=== PATIENT | female | born 1990 | race African-American/Black ===

== ENCOUNTER 2019-07-23 01:32 | Emergency (ER) | payer OTHER ==
[~2019-07-23] VITALS: Ht 160 cm; Wt 58.0 kg
[2019-07-23 01:54] VITALS: BP 142/90
== END 2019-07-23 04:33 | disposition left against medical advice (07) ==
LOC: ER 01:32
DX: Z53.21 Procedure and treatment not carried out due to patient leaving prior to being seen by health care provider (principal)

== ENCOUNTER 2022-12-09 04:16 | Emergency (ER) | payer OTHER ==
[~2022-12-09] VITALS: Ht 165.1 cm; Wt 75.0 kg
[2022-12-09 04:25] VITALS: BP 123/84
[2022-12-09 05:38] LABS: BASOPHILS % 0.4 % (0.0-2.0); HEMATOCRIT. 38.7 % (36.0-48.0); HEMOGLOBIN. 12.6 g/dL (12.0-16.0); LYMPHOCYTES % 26.7 % (20.0-50.0); MEAN CORPUSCULAR VOLUME 85.8 fL (81.0-99.0); MEAN PLATELET VOLUME 8.3 fl (7.4-10.4); MONOCYTES % 6.1 % (2.0-8.0); NEUTROPHILS % 65.8 % (40.0-76.0); PLATELET 331 x1000/uL (130-400); RED BLOOD CELL COUNT 4.51 mill/uL (4.2-5.4); RED CELL DISTRIBUTION WIDTH 14.8 % (11.6-14.6)
[2022-12-09 05:44] LABS: CHLORIDE 116 mEq/L (98-107)
[2022-12-09 05:52] LABS: ETHANOL BLOOD 202 mg/dL
[2022-12-09 06:05] LABS: HCG SCREEN NEGATIVE
[2022-12-09 06:55] LABS: CLARITY URINE CLOUDY (CLEAR); COLOR URINE YELLOW (YELLOW); KETONES URINE NEGATIVE (NEGATIVE); LEUKOCYTE ESTERASE URINE 1+ (NEGATIVE); NITRITE URINE NEGATIVE (NEGATIVE); OCCULT BLOOD URINE NEGATIVE (NEGATIVE); PH URINE 5.5 (4.5-8.0); PROTEIN URINE 1+ (NEGATIVE)
== END 2022-12-09 07:45 | disposition home or self-care (01) ==
LOC: ER 04:16
DX: S02.2XXA Fracture of nasal bones, initial encounter for closed fracture (principal); Y08.89XA Assault by other specified means, initial encounter; Y93.89 Activity, other specified; Y92.89 Other specified places as the place of occurrence of the external cause; Y99.8 Other external cause status; J45.909 Unspecified asthma, uncomplicated
CPT/HCPCS: 36415; 70486; 80053; 80320; 81003; 81025; 84703; 85025; 99284; G0480

== ENCOUNTER 2022-12-09 07:54 | Emergency (ER) | payer OTHER ==
[~2022-12-09] VITALS: Ht 152.4 cm; Wt 63.0 kg
[2022-12-09 08:03] VITALS: BP 122/78
== END 2022-12-09 08:58 | disposition left against medical advice (07) ==
LOC: ER 08:06
DX: Z53.21 Procedure and treatment not carried out due to patient leaving prior to being seen by health care provider (principal)
CPT/HCPCS: 99281